=== PATIENT | male | born 1995 | race Hispanic/Latino ===

== ENCOUNTER 2025-07-15 07:38 | Emergency (ER) | payer SELFPAY ==
[2025-07-15] MEDS ORDERED: Acetaminophen 500 MG TAB ONE (08:31)
[2025-07-15] MEDS ORDERED: Bacitracin 1 PK ONE (08:31)
== END 2025-07-15 10:22 | disposition home or self-care (01) ==
LOC: CSHERS 07:38
DX: S02.831A Fracture of medial orbital wall, right side, initial encounter for closed fracture (principal); S00.31XA Abrasion of nose, initial encounter; S00.81XA Abrasion of other part of head, initial encounter; W13.2XXA Fall from, out of or through roof, initial encounter; Z55.6 Problems related to health literacy
CPT/HCPCS: 70450; 70486; 72125